=== PATIENT | female | born 1935 ===

== ENCOUNTER 2020-09-25 07:23 | Day surgery (SDC) | payer OTHER | END 2020-09-25 15:24 | disposition home or self-care (01) | LOC: AMB-ENDOS 07:23 | PROVIDERS: ATTEND Colon & Rectal Surgery | DX: D12.2 Benign neoplasm of ascending colon (principal); D12.3 Benign neoplasm of transverse colon; D12.4 Benign neoplasm of descending colon; D12.8 Benign neoplasm of rectum; K64.8 Other hemorrhoids; Z20.828 Contact with and (suspected) exposure to other viral communicable diseases ==